=== PATIENT | male | born 1970 | race Caucasian/White ===

== ENCOUNTER 2017-07-30 15:44 | Inpatient (IN) | payer BC, OTHER ==
[~2017-07-30] VITALS: Ht 180.3 cm; Wt 90.6 kg
[2017-07-30 16:27] LABS: HEMOGLOBIN 15.4 g/dL (13.7-18.0); WHITE BLOOD COUNT 8.1 x10^3/uL (3.4-10)
[2017-07-30 16:38] LABS: BLOOD UREA NITROGEN 22 mg/dL (7-18)
[2017-07-30] MEDS ORDERED: GADOBUTROL 10 MMOL/10 ML PFS ONE (18:17)
[2017-07-30] MEDS ORDERED: OMNIPAQUE 350 MG/ML, 100ML BOTTLE ONE (18:22)
[2017-07-30 19:46] LABS: PATH.CAST-FLAG NOT PRESENT; SPERM-FLAG NOT PRESENT; SRC-FLAG NOT PRESENT; XTAL-FLAG NOT PRESENT; YLC-FLAG NOT PRESENT
[2017-07-30] MEDS ORDERED: hydrALAzine 20 MG/ML, 1ML IVPush PRN (20:00)
[2017-07-30] MEDS ORDERED: EVACUATED CONTAINER IVPB ONE (20:00)
[2017-07-30] MEDS ORDERED: IMMUNE GLOBULIN IVPB ONE (20:00)
[2017-07-30] MEDS ORDERED: HYDROmorphone 2 MG/ML, 1ML IVPush PRN (20:00)
[2017-07-30] MEDS ORDERED: DOCUSATE 100 MG CAPSULE PO PRN (20:00)
[2017-07-30] MEDS ORDERED: LORazepam 2 MG/ML, 1ML IV PRN ×5 (20:00)
[2017-07-30] MEDS ORDERED: ONDANSETRON 2MG/ML, 2ML IVPush PRN (20:00)
[2017-07-31 00:25] VITALS: BP 137/94
[2017-07-31] MEDS: FAMOTIDINE 20 MG/2 ML IVPush SCH ×3 (00:46→21:12)
[2017-07-31] MEDS: ENOXAPARIN 40 MG/0.4 ML SQ SCH ×2 (00:47→21:12)
[2017-07-31] MEDS: SODIUM CHLORIDE FLUSH 10ML SYR IVF SCH ×3 (00:47→21:12)
[2017-07-31] MEDS: INSULIN ASPART 100 UNITS/ML, PEN SQ-INSULIN SCH ×5 (01:09→21:33)
[2017-07-31 05:24] LABS: HEMATOCRIT 41.1 % (39.2-51.8); HEMOGLOBIN 14.1 g/dL (13.7-18.0)
[2017-07-31 05:41] LABS: BLOOD UREA NITROGEN 22 mg/dL (7-18)
[2017-07-31 07:15] VITALS: BP 142/97
[2017-07-31] MEDS: THIAMINE 100MG TABLET PO SCH (08:16)
[2017-07-31 11:43] LABS: DAU SCREEN DISCLAIMER
[2017-07-31] MEDS ORDERED: GADOBUTROL 10 MMOL/10 ML PFS ONE (12:32)
[2017-07-31] MEDS: INSULIN DETEMIR 100 UNITS/ML, PEN SQ-INSULIN SCH ×2 (13:31→23:10)
[2017-07-31 13:36] VITALS: BP 134/80
[2017-07-31 18:57] VITALS: BP 152/87
[2017-08-01 01:10] VITALS: BP 155/92
[2017-08-01 05:34] LABS: HEMATOCRIT 41.2 % (39.2-51.8); HEMOGLOBIN 14.4 g/dL (13.7-18.0); WHITE BLOOD COUNT 6.4 x10^3/uL (3.4-10)
[2017-08-01 05:36] LABS: BLOOD UREA NITROGEN 27 mg/dL (7-18)
[2017-08-01 07:15] VITALS: BP 142/97
[2017-08-01] MEDS: INSULIN ASPART 100 UNITS/ML, PEN SQ-INSULIN SCH ×4 (08:15→21:46)
[2017-08-01] MEDS: SODIUM CHLORIDE FLUSH 10ML SYR IVF SCH ×2 (10:31→21:23)
[2017-08-01] MEDS: FAMOTIDINE 20 MG/2 ML IVPush SCH ×2 (10:31→21:20)
[2017-08-01] MEDS: THIAMINE 100MG TABLET PO SCH (10:31)
[2017-08-01] MEDS: INSULIN DETEMIR 100 UNITS/ML, PEN SQ-INSULIN SCH ×2 (12:52→23:38)
[2017-08-01 13:00] VITALS: BP 150/88
[2017-08-01 20:09] VITALS: BP 131/88
[2017-08-01] MEDS: ENOXAPARIN 40 MG/0.4 ML SQ SCH (21:20)
[2017-08-02 03:23] VITALS: BP 144/107
[2017-08-02 08:00] VITALS: BP 146/91
[2017-08-02] MEDS: THIAMINE 100MG TABLET PO SCH (08:05)
[2017-08-02] MEDS: INSULIN ASPART 100 UNITS/ML, PEN SQ-INSULIN SCH ×4 (08:05→20:57)
[2017-08-02] MEDS: FAMOTIDINE 20 MG/2 ML IVPush SCH ×2 (08:05→20:44)
[2017-08-02] MEDS: SODIUM CHLORIDE FLUSH 10ML SYR IVF SCH ×2 (08:06→20:45)
[2017-08-02] MEDS: INSULIN DETEMIR 100 UNITS/ML, PEN SQ-INSULIN SCH ×2 (11:54→23:32)
[2017-08-02 13:48] VITALS: BP 142/102
[2017-08-02 18:30] VITALS: BP 127/81
[2017-08-02] MEDS ORDERED: methylPREDNISolone SOD SUCC 500 MG in DEXTROSE 5% 100 ML IV ONE (20:00)
[2017-08-02] MEDS: ENOXAPARIN 40 MG/0.4 ML SQ SCH (20:44)
[2017-08-02] MEDS: OXYcodone IR 5MG TABLET PO PRN (20:45)
[2017-08-02 21:08] VITALS: BP 138/88
[2017-08-03 02:00] VITALS: BP 117/81
[2017-08-03] MEDS: OXYcodone IR 5MG TABLET PO PRN ×2 (02:48→17:37)
[2017-08-03 07:22] VITALS: BP 132/88
[2017-08-03] MEDS: INSULIN ASPART 100 UNITS/ML, PEN SQ-INSULIN SCH ×4 (08:31→22:35)
[2017-08-03] MEDS: THIAMINE 100MG TABLET PO SCH (08:31)
[2017-08-03] MEDS: FAMOTIDINE 20 MG/2 ML IVPush SCH ×2 (08:31→22:25)
[2017-08-03] MEDS: SODIUM CHLORIDE FLUSH 10ML SYR IVF SCH ×2 (08:40→22:26)
[2017-08-03] MEDS: INSULIN DETEMIR 100 UNITS/ML, PEN SQ-INSULIN SCH (12:06)
[2017-08-03 13:05] VITALS: BP 121/82
[2017-08-03 19:30] VITALS: BP 125/77
[2017-08-03] MEDS: ENOXAPARIN 40 MG/0.4 ML SQ SCH (22:26)
[2017-08-03] MEDS ORDERED: INSULIN DETEMIR 100 UNITS/ML, PEN SQ-INSULIN SCH (23:30)
[2017-08-04] MEDS: OXYcodone IR 5MG TABLET PO PRN ×2 (00:30→18:27)
[2017-08-04 00:37] VITALS: BP 137/89
[2017-08-04 08:00] VITALS: BP 116/52
[2017-08-04] MEDS: THIAMINE 100MG TABLET PO SCH (08:32)
[2017-08-04] MEDS: INSULIN ASPART 100 UNITS/ML, PEN SQ-INSULIN SCH ×4 (08:32→21:07)
[2017-08-04] MEDS: FAMOTIDINE 20 MG/2 ML IVPush SCH ×2 (08:32→21:02)
[2017-08-04] MEDS: SODIUM CHLORIDE FLUSH 10ML SYR IVF SCH ×2 (09:00→21:03)
[2017-08-04] MEDS ORDERED: ENOX40SY4 SQ (11:28)
[2017-08-04] MEDS ORDERED: INSU100I28 SQ-INSULIN (11:28)
[2017-08-04] MEDS ORDERED: FAMO-79 PO (11:28)
[2017-08-04] MEDS: INSULIN DETEMIR 100 UNITS/ML, PEN SQ-INSULIN SCH ×2 (11:28→23:30)
[2017-08-04] MEDS ORDERED: DOCU-131 PO (11:28)
[2017-08-04] MEDS ORDERED: OXYC5TAB3 PO (11:28)
[2017-08-04] MEDS ORDERED: PRED20TA PO (11:28)
[2017-08-04] MEDS ORDERED: INSU100I18 SQ-INSULIN (11:28)
[2017-08-04 14:51] VITALS: BP 127/56
[2017-08-04 19:00] VITALS: BP 130/79
[2017-08-04] MEDS: ENOXAPARIN 40 MG/0.4 ML SQ SCH (21:03)
[2017-08-05] MEDS: OXYcodone IR 5MG TABLET PO PRN ×3 (01:03→20:49)
[2017-08-05 06:50] VITALS: BP 104/67
[2017-08-05] MEDS: INSULIN ASPART 100 UNITS/ML, PEN SQ-INSULIN SCH ×3 (07:00→16:18)
[2017-08-05] MEDS: THIAMINE 100MG TABLET PO SCH (08:11)
[2017-08-05] MEDS: FAMOTIDINE 20 MG/2 ML IVPush SCH ×2 (08:11→21:00)
[2017-08-05] MEDS: SODIUM CHLORIDE FLUSH 10ML SYR IVF SCH ×2 (08:12→20:52)
[2017-08-05] MEDS: INSULIN DETEMIR 100 UNITS/ML, PEN SQ-INSULIN SCH (11:11)
[2017-08-05] MEDS ORDERED: BISACODYL 10 MG SUPP PR PRN (11:30)
[2017-08-05 14:39] VITALS: BP 120/77
[2017-08-05 19:09] VITALS: BP 112/76
[2017-08-05] MEDS: ENOXAPARIN 40 MG/0.4 ML SQ SCH (20:47)
[2017-08-05] MEDS: FAMOTIDINE 20 MG TABLET PO SCH (23:36)
[2017-08-06] MEDS: INSULIN DETEMIR 100 UNITS/ML, PEN SQ-INSULIN SCH ×2 (00:15→12:06)
[2017-08-06] MEDS: INSULIN ASPART 100 UNITS/ML, PEN SQ-INSULIN SCH ×3 (00:16→11:31)
[2017-08-06 03:00] VITALS: BP 121/79
[2017-08-06] MEDS: OXYcodone IR 5MG TABLET PO PRN (03:20)
[2017-08-06 07:03] VITALS: BP 122/76
[2017-08-06] MEDS ORDERED: predniSONE 50MG TABLET PO SCH (08:00)
[2017-08-06] MEDS: FAMOTIDINE 20 MG/2 ML IVPush SCH (09:00)
[2017-08-06] MEDS: SODIUM CHLORIDE FLUSH 10ML SYR IVF SCH (09:00)
[2017-08-06] MEDS: FAMOTIDINE 20 MG TABLET PO SCH (09:22)
[2017-08-06] MEDS ORDERED: POLYETHYLENE GLYCOL 17 GM PACKET PO SCH (11:30)
[2017-08-06 13:22] VITALS: BP 123/70
[2017-08-06 15:24] VITALS: BP 138/89
[2017-08-06] MEDS ORDERED: LACTULOSE 10 GM/15 ML UDC PO SCH (21:00)
== END 2017-08-06 15:30 | DRG 98 ==
LOC: ED 18:45 → EDIP 19:58 → 4NOR 23:15
PROVIDERS: ADMIT Internal Medicine; ATTEND Hospitalist
PROC: 0T9B70Z Drainage of Bladder with Drainage Device, Via Natural or Artificial Opening (ICD-10-PCS; principal; 2017-07-30)
PROC: 009U3ZX Drainage of Spinal Canal, Percutaneous Approach, Diagnostic (ICD-10-PCS; 2017-07-30)
DX: G37.3 Acute transverse myelitis in demyelinating disease of central nervous system (principal); E87.1 Hypo-osmolality and hyponatremia; D69.6 Thrombocytopenia, unspecified; E11.42 Type 2 diabetes mellitus with diabetic polyneuropathy; E11.65 Type 2 diabetes mellitus with hyperglycemia; E87.2 Acidosis; F10.20 Alcohol dependence, uncomplicated; G57.93 Unspecified mononeuropathy of bilateral lower limbs; L40.9 Psoriasis, unspecified; K59.00 Constipation, unspecified; N28.9 Disorder of kidney and ureter, unspecified; R33.9 Retention of urine, unspecified; T38.0X5A Adverse effect of glucocorticoids and synthetic analogues, initial encounter; Z83.3 Family history of diabetes mellitus
CPT/HCPCS: 36415; 70460; 70553; 71010; 72156; 72157; 80048; 80307; 81003; 82947; 82962; 83036; 85025; 99285; A9585; J1459; J1650; J1815; J2930; Q9967; G0479; J0360; J7512; S0028